=== PATIENT | male | born 1990 | race Caucasian/White ===

== ENCOUNTER 2018-06-18 23:39 | Emergency (ER) | payer MEDICAID, OTHER ==
[~2018-06-18] VITALS: Ht 172.7 cm; Wt 67.0 kg
[2018-06-18 23:42] VITALS: BP 130/86
[2018-06-18] MEDS ORDERED: LIDOCAINE-MPF 1%, 5ML ONE (23:51)
[2018-06-19] MEDS ORDERED: LIDOCAINE-MPF 1%, 5ML INFIL ONE
== END 2018-06-19 00:24 | disposition home or self-care (01) ==
LOC: ED 06-19 00:17
DX: L02.412 Cutaneous abscess of left axilla (principal)
CPT/HCPCS: 10060; 99283